=== PATIENT | female | born 1970 | race Caucasian/White ===

== ENCOUNTER 2021-07-14 19:27 | Inpatient (IN) | payer OTHER ==
[~2021-07-14] VITALS: Ht 172.7 cm; Wt 128.0 kg
[2021-07-14 20:37] LABS: BASOPHILS ABSOLUTE AUTO 0.07 K/mm3 (0.00-0.23); BASOPHILS PERCENT AUTO 0 % (0-2); EOSINOPHILS ABSOLUTE AUTO 0.17 K/mm3 (0.00-0.68); EOSINOPHILS PERCENT AUTO 1 % (0-6); Hematocrit 41.4 % (33.0-51.0); Hemoglobin 13.4 g/dL (11.5-16.0); IMMATURE GRAN PERCENT AUTO 1 % (0-1); LYMPHOCYTES ABSOLUTE AUTO 1.73 K/mm3 (0.84-5.20); LYMPHOCYTES PERCENT AUTO 10 % (21-46); MONOCYTES ABSOLUTE AUTO 1.38 K/mm3 (0.16-1.47); MONOCYTES PERCENT AUTO 8 % (4-13); Mean Corpuscular HGB 28.3 pg (26.0-34.0); Mean Corpuscular HGB Conc 32.4 g/dL (31.5-36.5); Mean Corpuscular Volume 87 fL (80-100); Mean Platelet Volume 11.2 fL (9.1-12.4); NEUTROPHILS ABSOLUTE AUTO 13.82 K/mm3 (1.96-9.15); NEUTROPHILS PERCENT AUTO 80 % (41-73); Platelet Count 428 K/mm3 (150-400); RDW Coefficient Variation 12.5 % (11.7-14.2); RDW Standard Deviation 40.1 fL (35.1-46.3); Red Blood Cell Count 4.74 M/mm3 (3.80-5.20); White Blood Cell Count 17.27 K/mm3 (4.00-11.30)
[2021-07-14 20:49] LABS: Albumin, Blood 2.2 g/dL (3.4-5.0); Albumin/Globulin Ratio 0.4 (0.8-1.8); Bilirubin, Total 0.4 mg/dL (0.1-1.0); Bun/Creatinine Ratio 13.8 (12.0-20.0); Calcium, Blood 8.9 mg/dL (8.5-10.1); Creatinine, Blood 1.38 mg/dL (0.40-1.00); Globulin, Blood 5.6 g/dL (2.2-4.0); Potassium, Blood 3.7 mmol/L (3.5-5.5); Total Protein, Blood 7.8 g/dL (6.4-8.2)
[2021-07-15 04:47] LABS: BASOPHILS ABSOLUTE AUTO 0.08 K/mm3 (0.00-0.23); BASOPHILS PERCENT AUTO 1 % (0-2); EOSINOPHILS PERCENT AUTO 1 % (0-6); Hematocrit 38.5 % (33.0-51.0); Hemoglobin 12.3 g/dL (11.5-16.0); IMMATURE GRAN ABSOLUTE AUTO 0.09 K/mm3 (0.00-0.10); IMMATURE GRAN PERCENT AUTO 1 % (0-1); LYMPHOCYTES ABSOLUTE AUTO 2.98 K/mm3 (0.84-5.20); LYMPHOCYTES PERCENT AUTO 18 % (21-46); MONOCYTES ABSOLUTE AUTO 1.38 K/mm3 (0.16-1.47); MONOCYTES PERCENT AUTO 8 % (4-13); Mean Corpuscular HGB 28.1 pg (26.0-34.0); Mean Corpuscular HGB Conc 31.9 g/dL (31.5-36.5); Mean Corpuscular Volume 88 fL (80-100); Mean Platelet Volume 11.2 fL (9.1-12.4); NEUTROPHILS ABSOLUTE AUTO 11.89 K/mm3 (1.96-9.15); NEUTROPHILS PERCENT AUTO 72 % (41-73); Platelet Count 391 K/mm3 (150-400); RDW Coefficient Variation 12.6 % (11.7-14.2); RDW Standard Deviation 40.9 fL (35.1-46.3); Red Blood Cell Count 4.37 M/mm3 (3.80-5.20); White Blood Cell Count 16.62 K/mm3 (4.00-11.30)
[2021-07-15 05:17] LABS: Anion Gap 7 mmol/L (6-16); Blood Urea Nitrogen 17 mg/dL (8-24); Bun/Creatinine Ratio 11.9 (12.0-20.0); CO2, Blood 28 mmol/L (21-32); Calcium, Blood 8.6 mg/dL (8.5-10.1); Chloride, Blood 100 mmol/L (98-108); Creatinine, Blood 1.43 mg/dL (0.40-1.00); Glomerular Filtration Rate 39 (60-); Glucose, Blood 266 mg/dL (70-99); Phosphorus, Blood 4.3 mg/dL (2.5-4.9); Potassium, Blood 3.5 mmol/L (3.5-5.5); Sodium, Blood 135 mmol/L (136-145)
[2021-07-15] MEDS ORDERED: METF500 PO (05:53)
[2021-07-15] MEDS ORDERED: LOSARTAN-HCTZ1 EAC6 PO (05:55)
[2021-07-15] MEDS ORDERED: ATOR20 PO (05:57)
[2021-07-15] MEDS ORDERED: GABA300T24 PO (06:01)
[2021-07-15] MEDS ORDERED: 1/2 NS 250ml250 ML (06:04)
[2021-07-15] MEDS ORDERED: NOVOLIN 70100 UNIT/3 SC (06:08)
--- NOTE | 2021-07-15 06:34 | NUR ---
SPOUT LINER SUMMARU/ ADMISSION PATIENT WAS BROUGHT FROM THE ED. SHE IS ALERT AND ORIENTED. HER ASSESSMENT WAS DONE AND DOCUMENTED. SHE IS MADE COMFORTABLE. SHE IS STILL IN PAIN, AND WAS GIVEN HER PAIN MED. HER V/S REMAINED STABLE CUT A LITTLE ELEVATED. SHE GORT HER ANTIBIOTICS, AND FLUIDS STILL 0N GOING.SHE ALSO WANTED SOMETHING FOR NAUSEA. SAME WAS ASMINISTERED. WILL CONTINUE TO MONITOR HER.
[2021-07-15 08:22] LABS: Influenza A, PCR NEGATIVE (NEGATIVE); Influenza B, PCR NEGATIVE (NEGATIVE); Resp Syncytial Virus, PCR NEGATIVE (NEGATIVE); SARS-Cov-2 (COVID-19) PCR, MMC NEGATIVE (NEGATIVE)
--- NOTE | 2021-07-15 17:25 | NUR ---
SHIFT SUMMARY PT A/O X4; PLEASANT AND COOPERATIVE WITH CARE. PT CAME IN WITH SWOLLEN, RED, PAINFUL SECOND TOE ON R FOOT. PT TO THE O.R. AT THIS TIME FOR AMPUTATION OF THE AFFECTED TOE. PT SLIGHTLY ANXIOUS FOR SURGERY. VSS. MEDICATED PER EMR PRIOR TO SURGERY.
--- NOTE | 2021-07-15 18:08 | NUR ---
07/15/21 1808 Emanuel Buitrago PT ON SCHEDULED ANTIBIOTICS AND RECIEVED PRIOR TO ARRIVAL TO OR.
[2021-07-15 22:56] LABS: Vancomycin, Trough 23.6 ug/mL (5.0-10.0)
--- NOTE | 2021-07-16 03:40 | NUR ---
CHIEF ARCHITECT SUMMARY PATIENT HAD A FAIR SHIFT. ASSESSMENT DONE AND RECORDED. SHE DID NOT COMPLAIN OF ANY PAIN PAIN OVERNIGHT. HER VS WERE STABLE. WILL CONTINUE TO MONITOR HER.
[2021-07-16 05:04] LABS: Hematocrit 33.6 % (33.0-51.0); Hemoglobin 10.7 g/dL (11.5-16.0); Mean Corpuscular HGB 28.5 pg (26.0-34.0); Mean Corpuscular HGB Conc 31.8 g/dL (31.5-36.5); Mean Corpuscular Volume 89 fL (80-100); Mean Platelet Volume 11.3 fL (9.1-12.4); Platelet Count 352 K/mm3 (150-400); RDW Coefficient Variation 12.5 % (11.7-14.2); RDW Standard Deviation 40.9 fL (35.1-46.3); Red Blood Cell Count 3.76 M/mm3 (3.80-5.20)
[2021-07-16 05:22] LABS: Albumin, Blood 1.7 g/dL (3.4-5.0); Anion Gap 6 mmol/L (6-16); Blood Urea Nitrogen 20 mg/dL (8-24); Bun/Creatinine Ratio 11.8 (12.0-20.0); CO2, Blood 28 mmol/L (21-32); Calcium, Blood 8.4 mg/dL (8.5-10.1); Chloride, Blood 101 mmol/L (98-108); Glomerular Filtration Rate 32 (60-); Glucose, Blood 372 mg/dL (70-99); Phosphorus, Blood 4.4 mg/dL (2.5-4.9); Potassium, Blood 3.9 mmol/L (3.5-5.5); Sodium, Blood 135 mmol/L (136-145)
--- NOTE | 2021-07-16 17:26 | NUR ---
SHIFT SUMMARY PT POD #1 FOR SECOND TOE AMPUTATION ON R FOOT. KAREEM WRAP AND GUAZE DRESSING TO R FOOT CDI. PT IS A SCA TO THE BATHROOM AND HAS NOT REQUIRED ANY PAIN MEDICATION THIS SHIFT. INSULIN ADJUSTED DUE TO HIGH BLOOD GLUCOSE LEVELS. VSS. WILL REPORT TO SIM CLOUD.
--- NOTE | 2021-07-16 23:48 | NUR ---
IV DRESSING CHANGE DONE. PT TOLERATED WELL.
--- NOTE | 2021-07-17 03:23 | NUR ---
REGULAR SENIOR CARE PROVIDER SUMMARY PATIENT HAD A FAIR SHIFT. ASSESSMENT DONE AND DOCUMENTED. SHE HAD HER PAIN MED NEEDED. NO OTHER COMPLAINTS OVERNIGHT. WILL CONTINUE TO MONITOR HER.
[2021-07-17 09:02] LABS: Vancomycin, Trough 17.4 ug/mL (5.0-10.0)
[2021-07-17 09:04] LABS: Albumin, Blood 1.9 g/dL (3.4-5.0); Anion Gap 6 mmol/L (6-16); Blood Urea Nitrogen 16 mg/dL (8-24); CO2, Blood 28 mmol/L (21-32); Calcium, Blood 8.7 mg/dL (8.5-10.1); Chloride, Blood 101 mmol/L (98-108); Creatinine, Blood 1.45 mg/dL (0.40-1.00); Glomerular Filtration Rate 38 (60-); Glucose, Blood 306 mg/dL (70-99); Phosphorus, Blood 3.3 mg/dL (2.5-4.9); Potassium, Blood 3.7 mmol/L (3.5-5.5); Sodium, Blood 135 mmol/L (136-145)
[2021-07-17] MEDS ORDERED: INSULIN GL100 UNIT/2 SC (13:03)
[2021-07-17] MEDS ORDERED: HUMALOG KW100 UNIT/1 SC (13:07)
[2021-07-17] MEDS ORDERED: VISBIOME 112.51 EACH PO (13:09)
[2021-07-17] MEDS ORDERED: VITAMIN D31000 UNI1 PO (13:10)
[2021-07-17] MEDS ORDERED: AMOCLA500 PO (13:13)
--- NOTE | 2021-07-17 14:59 | NUR ---
DISCHARGE NOTE PATIENT WAS DISCHARGED THIS SHIFT AT 1415 VIA WHEELCHAIR HOME WITH FRIEND. PATIENT VERBALIZED UNDERSTANDING OF DISCHARGE INSTRUCTIONS PROVIDED. PATIENT'S FOLLOW UP APPOINTED WAS SCHEDULED WITH PCP. IV DISCONTINUED PRIOR TO DISCHARGE. VSS. NOTHING FURTHER TO REPORT.
--- NOTE | 2021-07-18 15:36 | NUR ---
DISCHARGE MEDS: PT CALLS REPORTING SHE IS MISSING MULTIPLE MEDICATIONS FROM HER DISCHARGE. CALLED AND SPOKE WITH DR. UGARTE AND PHARMACIST AT [facility]. PER DR. UGARTE, THIS RN MAY CALL IN 30 DAY RX FOR PATIENT'S HOME MEDS LISTED: 1) ATORVASTATIN 40 MG PO BEDTIME 2) BUPROPRION 150 MG PO BID 3) GABAPENTIN 300 MG PO BID 4) LOSARTAN 100 MG/HCTZ 12.5 MG 1 EACH PO QAM PER PT, SHE DOESN'T HAVE THESE ANYMORE SHE HAS RELOCATED FROM [place] AND JUST NEEDS A FILL UNTIL SHE CAN SEE HER NEW PCP.
== END 2021-07-17 14:16 | disposition home or self-care (01) | DRG 854 ==
LOC: ER 19:27 → ERHOLD 23:10 → MEDS 23:10 → ENPENDDIS 07-17 12:26 → MEDS 07-17 14:16
PROVIDERS: Internal Medicine; Physician Assistant; Podiatrist; ADMIT Internal Medicine
PROC: 0Y6R0Z0 Detachment at Right 2nd Toe, Complete, Open Approach (ICD-10-PCS; principal; 2021-07-15 14:15)
DX: A41.9 Sepsis, unspecified organism (principal); M86.8X7 Other osteomyelitis, ankle and foot; N17.9 Acute kidney failure, unspecified; Z68.41 Body mass index [BMI] 40.0-44.9, adult; E87.1 Hypo-osmolality and hyponatremia; Z20.822 Contact with and (suspected) exposure to COVID-19; L97.514 Non-pressure chronic ulcer of other part of right foot with necrosis of bone; E11.621 Type 2 diabetes mellitus with foot ulcer; E11.65 Type 2 diabetes mellitus with hyperglycemia; R65.20 Severe sepsis without septic shock; E11.69 Type 2 diabetes mellitus with other specified complication; E66.01 Morbid (severe) obesity due to excess calories; E11.42 Type 2 diabetes mellitus with diabetic polyneuropathy; E78.5 Hyperlipidemia, unspecified; N18.30 Chronic kidney disease, stage 3 unspecified; I12.9 Hypertensive chronic kidney disease with stage 1 through stage 4 chronic kidney disease, or unspecified chronic kidney disease; E11.22 Type 2 diabetes mellitus with diabetic chronic kidney disease; Z79.4 Long term (current) use of insulin; Z79.899 Other long term (current) drug therapy; Z28.21 Immunization not carried out because of patient refusal
CPT/HCPCS: 0241U; 36415; 73660; 80053; 80069; 80202; 82947; 83605; 85025; 85027; 85651; 87040; 87071; 87075; 87077; 87147; 87186; 87205; 88305; 88311; 96365; 96366; 96367; 99285-25; A9270; J0295; J0692; J1650; J1815; J2250; J2405; J2543; J2704; J3010; J3370; J7050; J7120

== ENCOUNTER → 2021-10-17 | Outpatient (CLI) | payer OTHER ==
[~2021-10-17] MED LIST: 1/2 NS 250ml250 ML; AMOCLA500 PO; ATOR20 PO; GABA300T24 PO; HUMALOG KW100 UNIT/1 SC; INSULIN GL100 UNIT/2 SC; LOSARTAN-HCTZ1 EAC6 PO; METF500 PO; NOVOLIN 70100 UNIT/3 SC; VISBIOME 112.51 EACH PO; VITAMIN D31000 UNI1 PO
== END | disposition home or self-care (01) ==
LOC: LAB SHORT 09:40 → LAB 09:40
DX: L03.031 Cellulitis of right toe (principal)
CPT/HCPCS: 87070; 87077; 87147; 87186; 87205

== ENCOUNTER 2022-08-30 13:16 | Day surgery (SDC) | payer OTHER ==
[~2022-08-30] VITALS: Ht 172.7 cm; Wt 125.9 kg
[2022-08-30] MEDS ORDERED: SERT25 (14:35)
[2022-08-30] MEDS ORDERED: BUPROPION XL150 M1 PO (14:35)
[2022-08-30] MEDS ORDERED: SERT25 PO (14:35)
[2022-08-30] MEDS ORDERED: TRAZ50 PO (14:36)
[2022-08-30] MEDS ORDERED: ZOLP5 PO (14:36)
[2022-08-30] MEDS ORDERED: Ventolin5 MG/1 ML INH (14:38)
--- NOTE | 2022-08-30 16:03 | NUR ---
08/30/22 1603 PARAG OWEN PT SITTING IN RECLINER, EATING AND DRINKING W/O DIFF. DENIES PAIN AND NAUSEA. O2 100% ON RA, PULSE 88, RESP 16. OBTAINING BP NOW. WAITING ON BP.
== END 2022-08-30 17:34 | disposition home or self-care (01) ==
LOC: ORSCSDS 13:16
PROVIDERS: Podiatrist
PROC: 0QBN0ZZ Excision of Right Metatarsal, Open Approach (ICD-10-PCS; principal; 2022-08-30 14:30)
DX: M89.371 Hypertrophy of bone, right ankle and foot (principal); E11.42 Type 2 diabetes mellitus with diabetic polyneuropathy; I12.9 Hypertensive chronic kidney disease with stage 1 through stage 4 chronic kidney disease, or unspecified chronic kidney disease; E11.22 Type 2 diabetes mellitus with diabetic chronic kidney disease; N18.9 Chronic kidney disease, unspecified; Z79.4 Long term (current) use of insulin; Z79.84 Long term (current) use of oral hypoglycemic drugs; Z79.899 Other long term (current) drug therapy; E66.01 Morbid (severe) obesity due to excess calories; Z68.41 Body mass index [BMI] 40.0-44.9, adult
CPT/HCPCS: 82947; A9270; J0690; J2250; J2704; J2795; J3010; J7120

== ENCOUNTER 2022-09-14 13:54 | Emergency (ER) | payer OTHER ==
[~2022-09-14] VITALS: Ht 172.7 cm; Wt 123.4 kg
[~2022-09-14 13:54] MED LIST changes: +BUPROPION XL150 M1 PO; +SERT25; +SERT25 PO; +TRAZ50 PO; +Ventolin5 MG/1 ML INH; +ZOLP5 PO
== END 2022-09-14 17:28 | disposition home or self-care (01) ==
LOC: ER 13:54
DX: T87.81 Dehiscence of amputation stump (principal); E11.9 Type 2 diabetes mellitus without complications; Z79.899 Other long term (current) drug therapy; Z79.84 Long term (current) use of oral hypoglycemic drugs; Z79.4 Long term (current) use of insulin
CPT/HCPCS: 73630; 99283-25

== ENCOUNTER 2025-01-22 18:32 | Emergency (ER) | payer OTHER ==
[~2025-01-22] VITALS: Ht 172.7 cm; Wt 140.6 kg
[~2025-01-22 18:32] MED LIST changes: +ARIPIPRAZOLE PO; +BUSP10 PO; +OMEP20ER PO
[2025-01-22 20:48] VITALS: BP 115/75
[2025-01-23] MEDS ORDERED: RX Prepack 6 Tabs Oxycodone 5mg UD ONE (00:35)
[2025-01-23] MEDS ORDERED: HYDR1TAB94 PO (00:42)
== END 2025-01-23 00:41 | disposition home or self-care (01) ==
LOC: ER 18:32
DX: T82.898A Other specified complication of vascular prosthetic devices, implants and grafts, initial encounter (principal); E78.00 Pure hypercholesterolemia, unspecified; J45.909 Unspecified asthma, uncomplicated; E11.9 Type 2 diabetes mellitus without complications; I10 Essential (primary) hypertension; Z79.84 Long term (current) use of oral hypoglycemic drugs; Z79.4 Long term (current) use of insulin; Z79.899 Other long term (current) drug therapy
CPT/HCPCS: 99283; A9270

== ENCOUNTER → 2025-03-11 | Outpatient (CLI) | payer OTHER ==
[~2025-03-11] MED LIST changes: +HYDR1TAB94 PO
[2025-03-11 13:42] LABS: Source, Urine Clean Catch
[2025-03-11 14:29] LABS: Bilirubin, Urine Neg (Neg); Color, Urine Yellow (P-Yellow); Glucose Qualitative, Urine 1+ (Neg); Ketones, Urine Neg (Neg); Leukocyte Esterase, Urine Neg (Neg); Protein, Urine 3+ (Neg); Specific Gravity, Urine 1.015 (1.003-1.022); Urobilinogen, Urine NORM (Normal)
[2025-03-11 14:40] LABS: Red Blood Cells, Urine 0-2 /hpf (0-2); White Blood Cells, Urine 0-2 /hpf (0-5)
== END ==
LOC: LAB SHORT 13:41 → LAB 13:41
PROVIDERS: Hospitalist
DX: R39.9 Unspecified symptoms and signs involving the genitourinary system (principal)
CPT/HCPCS: 81001; 87086